=== PATIENT | male | born 1975 | race Caucasian/White ===

== ENCOUNTER 2017-07-19 08:46 | Emergency (ER) | payer SELFPAY ==
[2017-07-19] MEDS ORDERED: CloNIDine HCL 0.1 MG TABLET PO ONE (09:46)
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
[2017-07-19] MEDS ORDERED: LISINOPRIL 5 MG TABLET PO ONE (10:47)
[2017-07-19] MEDS ORDERED: LISINOPRIL 20 MG TABLET ONE (10:48)
[2017-07-19 11:26] VITALS: BP 156/94
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
== END 2017-07-19 11:22 | disposition home or self-care (01) ==
LOC: ED 08:46
DX: R41.1 Anterograde amnesia (principal); R41.2 Retrograde amnesia; I10 Essential (primary) hypertension; V58.5XXA Driver of pick-up truck or van injured in noncollision transport accident in traffic accident, initial encounter; Y92.411 Interstate highway as the place of occurrence of the external cause; Y93.89 Activity, other specified; Y99.9 Unspecified external cause status
CPT/HCPCS: 70450; 99283

== ENCOUNTER 2018-05-15 14:07 | Emergency (ER) | payer OTHER ==
[2018-05-15] MEDS ORDERED: DIPH,PERTUSS(ACELL),TET VAC/PF 0.5 ML DISP.SYRIN IM ONE (14:18)
[2018-05-15] MEDS ORDERED: LIDOCAINE HCL 1% PF 300MG/30ML VIAL IJ STA (14:19)
[2018-05-15] MEDS ORDERED: LIDOCAINE HCL 1%/EPI. (1:100,000) MDV 20ML VIAL IJ STA (14:25)
[2018-05-15] MEDS ORDERED: LIDOCAINE HCL 1%/EPI. (1:100,000) MDV 20ML VIAL IJ ONE (14:25)
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
[2018-05-15] MEDS ORDERED: HYDROcodone /APAP 5/325 1 EACH TABLET PO STA (14:54)
[2018-05-15] MEDS ORDERED: ONDANSETRON HCL 4 MG TAB.RAPDIS PO STA (14:55)
--- NOTE | 2018-05-15 15:09 | Diagnostic Imaging Report ---
KATHRYN PERALTA [facility] [address] [facility] [address] [address] Report Submission Date: May 15, 2018 3:07:19 PM THEATER TEACHER Patient Study Name: HALLIE MURO Date: May 15, 2018 2:41:40 PM THEATER TEACHER Modality Type: DX Gender: M Description: UPPER EXTREMITY : 71 Institution: [facility] Physician: KATHRYN PERALTA Left hand 2 views Clinical history: Foreign body Technique AP and lateral Findings: No fractures identified. There is a lateral ulnar 5 mm foreign body at the wrist. The carpal rows are intact. Impression: Lateral palmar wrist 5 mm semiopaque foreign body Electronically signed on May 15, 2018 3:07:19 PM THEATER TEACHER by: Chapin SELLERS
[2018-05-15 17:45] VITALS: BP 142/96
== END 2018-05-15 16:49 | disposition home or self-care (01) ==
LOC: ED 14:07
DX: S61.412A Laceration without foreign body of left hand, initial encounter (principal); S61.512A Laceration without foreign body of left wrist, initial encounter; S51.822A Laceration with foreign body of left forearm, initial encounter; W25.XXXA Contact with sharp glass, initial encounter; W45.8XXA Other foreign body or object entering through skin, initial encounter; Y93.9 Activity, unspecified; Y92.9 Unspecified place or not applicable
CPT/HCPCS: 12002; 12032; 73130; 90471; 90715; 99283; 99284; A9270